=== PATIENT | male | born 1990 | race Caucasian/White ===

== ENCOUNTER 2022-02-25 08:00 | Outpatient (CLI) | payer OTHER ==
[2022-02-26 00:11] LABS: CHLAMYDIA TRACHOMATIS DNA NEGATIVE (NEGATIVE); NEISSERIA GONORRHOEAE DNA NEGATIVE (NEGATIVE)
[2022-02-26 05:11] LABS: HCV AB <0.1 s/co ratio (0.0-0.9); HIV SCREEN 4TH GENERATION Non Reactive (Non Reactive)
[2022-02-26 06:11] LABS: RPR Non Reactive (Non Reactive)
[2022-02-26 08:09] LABS: HSV 2 IGG TYPE SPEC <0.91 index (0.00-0.90)
[2022-02-26 22:06] LABS: HSV IGM I/II COMBINATION <0.91 Ratio (0.00-0.90)
== END 2022-02-25 23:59 | disposition home or self-care (01) ==
LOC: LAB.N 08:00
PROVIDERS: ATTEND Family Medicine
DX: Z11.3 Encounter for screening for infections with a predominantly sexual mode of transmission (principal)
CPT/HCPCS: 36415; 86592; 86694; 86695; 86696; 86803; 87255; 87389; 87491; 87591; 87661